=== PATIENT | male | born 1995 | race Caucasian/White ===

== ENCOUNTER 2017-05-31 15:03 | Emergency (ER) | payer SELFPAY ==
[2017-05-31 15:06] VITALS: BP 136/74; PULSE 85; TEMP 98.3; BMI 24.3
--- NOTE | 2017-05-31 15:36 | PDOC ---
History of Present Illness - General Chief Complaint: Injury Stated Complaint: FALL/ LT ANKLE PAIN Time Seen by Provider: 05/31/17 15:22 History Source: Patient Exam Limitations: No Limitations - History of Present Illness Initial Comments: 05/31/17 15:33 c/o 2 weeks of pain to the left foot and ankle with limited extension of the foot. Pt also with swelling to the calf. Pt unsure of direct injury , states he plays soccer and does frequent break dancing, does not recall injury. Pt has no PMHX. Past History - Past Medical History Allergies/Adverse Reactions: Allergies Allergy/AdvReac Type Severity Reaction Status Date / Time No Known Allergies Allergy Verified 05/31/17 15:06 Home Medications: Ambulatory Orders NK [No Known Home Medication] 05/31/17 COPD: No - Suicide/Smoking/Psychosocial Hx Smoking History: Unknown if ever smoked Hx Alcohol Use: No Drug/Substance Use Hx: No Substance Use Type: Marijuana Review of Systems - Review of Systems Able to Perform ROS?: Yes Is the patient limited [place] proficient: No Constitutional: No: Symptoms Reported HEENTM: No: Symptoms Reported Respiratory: No: Symptoms reported Cardiac (ROS): No: Symptoms Reported ABD/GI: No: Symptoms Reported : No: Symptoms Reported Musculoskeletal: Yes: Symptoms Reported *Physical Exam - Vital Signs Last Vital Signs Temp Pulse Resp BP Pulse Ox 98.3 F 85 18 136/74 99 05/31/17 15:04 05/31/17 15:04 05/31/17 15:04 05/31/17 15:04 05/31/17 15:04 - Physical Exam General Appearance: Yes: Nourished, Appropriately Dressed HEENT: positive: EOMI, CHELSEY Musculoskeletal: positive: Normal Inspection Extremity: positive: Normal Capillary Refill, Tender, Calf Tenderness Integumentary: positive: Normal Color, Dry, Warm Neurologic: positive: Fully Oriented, Alert, Normal Mood/Affect, Normal Response , Sensory Deficit (decreased sensation to plantar surface left foot ), Other ( ambulatign with limp) Deep Tendon Reflexes: Ankle (L): 2+, Ankle (R): 2+ ED Treatment Course - RADIOLOGY Radiology Studies Ordered: Category Date Time Status ANKLE & FOOT-LEFT* [RAD] Stat Radiology 05/31/17 15:25 Ordered Medical Decision Making - Medical Decision Making 02/25/18 15:34 cc: left calf with area of swelling laterally 3cm left ankle with tenderness to lateral malleolus nv intact decreased ROM of the foot in extension will r/o fracture r/o DVT denies headache or dizzyness no head trauma in the past 05/31/17 16:03 *DC/Admit/Observation/Transfer Diagnosis at time of Disposition: Ankle pain Qualifiers: Chronicity: acute Laterality: left Qualified Code(s): M25.572 - Pain in left ankle and joints of left foot - Discharge Dispostion Disposition: HOME Condition at time of disposition: Good - Referrals Referrals: Landon Dale MD [Staff Physician] - - Patient Instructions Additional Instructions: follow up with the orthopedist this week call tomorrow to make appointment use the air cast splint at all times remove to sleep and bathe elevate and take motrin 600mg every 6hrs for pain - Post Discharge Activity
== END 2017-05-31 17:02 | disposition home or self-care (01) ==
LOC: JERFT 15:03
DX: M25.572 Pain in left ankle and joints of left foot (principal)
CPT/HCPCS: 73610-TC-LT-FY; 73630-TC-LT; 93971-TC; 99281-25

== ENCOUNTER 2020-10-29 07:39 | Emergency (ER) | payer SELFPAY ==
[2020-10-29 07:51] VITALS: BMI 23.3
[2020-10-29] MEDS ORDERED: LACTATED RINGERS SOLUTION 1000 ML INFUS.BAG IV ONE (08:21)
[2020-10-29] MEDS ORDERED: PANTOPRAZOLE SODIUM 40 MG VIAL IVPUSH ONE (08:21)
[2020-10-29] MEDS ORDERED: MAG HYDROX/AL HYDROX/SIMETH 30 ML UNIT-DOSE CUP PO ONE (08:21)
[2020-10-29] MEDS ORDERED: MAG HYDROX/AL HYDROX/SIMETH 30 ML UNIT-DOSE CUP ONE (08:31)
[2020-10-29] MEDS ORDERED: PANTOPRAZOLE SODIUM 40 MG VIAL ONE (08:31)
[2020-10-29 09:02] LABS: BASO % 0.3 % (0-2.0); EOS % 0.2 % (0-4.5); HEMATOCRIT 49.4 % (35.4-49); HEMOGLOBIN 16.9 GM/dL (11.7-16.9); MCHC 34.1 g/dl (32.0-35.9); MEAN CELL VOLUME 90.9 fl (80-96); MEAN PLT VOLUME 8.9 fl (7.5-11.1); MONO % 7.9 % (3.8-10.2); NEUT % 76.6 % (42.8-82.8); PLATELET COUNT 179 10^3/uL (134-434); RBC 5.43 M/mm3 (4.00-5.60)
[2020-10-29 09:09] LABS: INR 1.13 (0.83-1.09); PROTHROMBIN TIME (PATIENT) 13.9 SEC (9.7-13.0)
[2020-10-29 09:12] LABS: ACTIVATED PTT 31.6 SECONDS (25.2-36.5)
[2020-10-29 09:24] LABS: CALCIUM 9.4 mg/dL (8.5-10.1)
[2020-10-29 09:25] LABS: ALBUMIN 4.5 g/dl (3.4-5.0); BLOOD UREA NITROGEN 8.8 mg/dL (7-18)
[2020-10-29 09:28] LABS: CREATININE 1.1 mg/dL (0.55-1.3)
[2020-10-29 09:29] LABS: BILIRUBIN,TOTAL 0.4 mg/dL (0.2-1); TOT PROT 8.4 g/dl (6.4-8.2)
[2020-10-29 10:42] LABS: BASO % 0.4 % (0-2.0); EOS % 0.2 % (0-4.5); HEMATOCRIT 45.5 % (35.4-49); HEMOGLOBIN 15.5 GM/dL (11.7-16.9); LYMPH % 16.9 % (8-40); MCH 31.1 pg (25.7-33.7); MCHC 34.2 g/dl (32.0-35.9); MEAN CELL VOLUME 90.8 fl (80-96); MEAN PLT VOLUME 8.7 fl (7.5-11.1); NEUT % 74.5 % (42.8-82.8); PLATELET COUNT 164 10^3/uL (134-434); RDW 12.8 % (11.9-15.9); WHITE BLOOD COUNT 15.4 K/mm3 (4.0-10.0)
[2020-10-29] MEDS ORDERED: ACETAMINOPHEN 500 MG TABLET (FP) PO ONE ×2 (11:48→11:50)
[2020-10-29] MEDS ORDERED: ACETAMINOPHEN 325 MG TABLET (FP) ONE (11:52)
[2020-10-29 13:06] VITALS: TEMP 98.9
[2020-10-29 15:57] VITALS: BP 116/66; PULSE 76
[2020-10-30 12:07] LABS: SARS-CoV-2 NAA Not Detected (Not Detected)
== END 2020-10-29 16:06 | disposition home or self-care (01) ==
LOC: JER 07:39
PROC: 3E033NZ Introduction of Analgesics, Hypnotics, Sedatives into Peripheral Vein, Percutaneous Approach (ICD-10-PCS; principal; 2020-10-29)
DX: K52.9 Noninfective gastroenteritis and colitis, unspecified (principal); K50.00 Crohn's disease of small intestine without complications; R19.7 Diarrhea, unspecified
CPT/HCPCS: 36415; 71046-TC-FY; 74177-TC; 80053; 82272; 83690; 85025; 85610; 85730; 86140; 99285-25; C9803; Q9967; U0003; U0005

== ENCOUNTER 2021-03-31 12:55 | Emergency (ER) | payer SELFPAY ==
[2021-03-31 13:09] VITALS: BP 140/73; PULSE 95; TEMP 98.7; BMI 22.1
[2021-04-03 14:07] LABS: BABESIA MICROTI ANTIBODY IGG <1:10 (Neg:<1:10); BABESIA MICROTI ANTIBODY IGM <1:10 (Neg:<1:10); E.chaff HME IgG Negative (Neg:<1:64)
== END 2021-03-31 20:37 | disposition home or self-care (01) ==
LOC: JER 12:55
DX: L30.9 Dermatitis, unspecified (principal); B34.9 Viral infection, unspecified
CPT/HCPCS: 36415; 86618; 86666; 86753; 87070; 87804; 99283-25; C9803; U0003; U0005

== ENCOUNTER 2024-01-04 18:44 | Emergency (ER) | payer OTHER ==
[2024-01-04 19:15] VITALS: BP 119/73; PULSE 80; RESP 18; TEMP 99.1; BMI 25.8
[2024-01-04 20:58] LABS: BASO % 0.4 % (0-2.0); EOS % 1.4 % (0-4.5); HEMATOCRIT 49.4 % (35.4-49); HEMOGLOBIN 16.8 GM/dL (11.7-16.9); LYMPH % 33.3 % (8-40); MCH 30.7 pg (25.7-33.7); MEAN CELL VOLUME 90.5 fl (80-96); MEAN PLT VOLUME 8.3 fl (7.5-11.1); NEUT % 56.9 % (42.8-82.8); PLATELET COUNT 228 10^3/uL (134-434); RBC 5.46 M/mm3 (4.00-5.60); WHITE BLOOD COUNT 9.7 K/mm3 (4.0-10.0)
[2024-01-04] MEDS ORDERED: ONDANSETRON 4 MG/2 ML VIAL ONE (21:03)
[2024-01-04] MEDS ORDERED: KETOROLAC TROMETHAMINE 30 MG/1 ML VIAL ONE (21:03)
[2024-01-04 21:23] LABS: POTASSIUM 4.1 mmol/L (3.5-5.1)
[2024-01-04 21:25] LABS: CALCIUM 9.8 mg/dL (8.5-10.1)
[2024-01-04 21:26] LABS: ALBUMIN 4.3 g/dl (3.4-5.0); BLOOD UREA NITROGEN 11.6 mg/dL (7-18)
[2024-01-04] MEDS: SODIUM CHLORIDE 0.9% 500 ML INFUS.BAG IV ONE (21:27)
[2024-01-04] MEDS: KETOROLAC TROMETHAMINE 30 MG/1 ML VIAL IVPUSH ONE (21:28)
[2024-01-04] MEDS: ONDANSETRON 4 MG/2 ML VIAL IVPUSH ONE (21:28)
[2024-01-04 21:31] LABS: BILIRUBIN,TOTAL 0.6 mg/dL (0.2-1)
[2024-01-04] MEDS ORDERED: FAMOTIDINE 20 MG TABLET ONE (22:14)
[2024-01-04] MEDS ORDERED: MAG HYDROX/AL HYDROX/SIMETH 30 ML UNIT-DOSE CUP ONE (22:15)
[2024-01-04] MEDS: FAMOTIDINE 20 MG TABLET PO ONE (22:17)
[2024-01-04] MEDS: MAG HYDROX/AL HYDROX/SIMETH 30 ML UNIT-DOSE CUP PO ONE (22:17)
== END 2024-01-04 22:17 | disposition home or self-care (01) ==
LOC: JER 18:44
PROC: 3E0333Z Introduction of Anti-inflammatory into Peripheral Vein, Percutaneous Approach (ICD-10-PCS; principal; 2024-01-04)
PROC: 3E033GC Introduction of Other Therapeutic Substance into Peripheral Vein, Percutaneous Approach (ICD-10-PCS; 2024-01-04)
DX: K29.00 Acute gastritis without bleeding (principal); R11.2 Nausea with vomiting, unspecified; R10.13 Epigastric pain
CPT/HCPCS: 36415; 80053; 83690; 85025; 99284-25